=== PATIENT | female | born 1995 | race Caucasian/White ===

== ENCOUNTER 2018-03-02 17:12 | Emergency (ER) | payer OTHER ==
[2018-03-02 17:47] LABS: BASOPHILS % (AUTO) 1 % (0-3); EOSINOPHILS % (AUTO) 2 % (0-9); HEMATOCRIT 39 % (35-47); HEMOGLOBIN 13.3 gm/dl (12.0-15.5); LYMPHOCYTES % (AUTO) 34.2 % (10-50); MEAN CORPUSCULAR HGB CONC 34.1 gm/dl (32.0-36.0); MEAN CORPUSCULAR VOLUME 88 fL (81-99); MONOCYTES % (AUTO) 5.5 % (0-12); NEUTROPHILS % (AUTO) 57.5 % (37-80)
[2018-03-02 17:59] LABS: APPEARANCE,URINE Clear; BILIRUBIN,URINE NEGATIVE (NEGATIVE); COLOR,URINE Yellow; GLUCOSE, URINE (UA) NEGATIVE (NEGATIVE); KETONES,URINE NEGATIVE (NEGATIVE); LEUKOCYTE ESTERASE ,URINE NEGATIVE (NEGATIVE); NITRATE,URINE NEGATIVE (NEGATIVE); OCCULT BLOOD,URINE NEGATIVE (NEG-TRACE); PH,URINE 6.5; UROBILINOGEN,URINE 0.2 (0.2-1.0 EU)
[2018-03-02 18:02] VITALS: PULSE 67; RESP 16; TEMP 97.7
[2018-03-02 18:03] LABS: ALBUMIN 4.4 gm/dl (3.4-5.0); ALKALINE PHOSPHATASE 53 IU/L (46-116); ALT 27 IU/L (14-63); AST 20 IU/L (15-37); BILIRUBIN,TOTAL 0.4 mg/dl (0.2-1.0); BLOOD UREA NITROGEN 13 mg/dl (7-18); CALCIUM 8.9 mg/dl (8.5-10.1); CARBON DIOXIDE 26.3 mEq/L (21-32); CHLORIDE 104 mMol/L (98-107); CREATININE 0.78 mg/dl (0.60-1.00); GLUCOSE 90 mg/dl (74-106); POTASSIUM 3.6 mMol/L (3.5-5.1); SODIUM 139 mMol/L (136-145); TOTAL PROTEIN 7.2 gm/dl (6.4-8.2)
[2018-03-02 18:05] LABS: LACTIC ACID < 0.8 mMol/L (0.0-2.0)
[2018-03-02 18:30] LABS: RBC,URINE NEG (0-3AV/HPF); WBC,URINE NEG (0-5AV/HPF)
[2018-03-02 18:31] LABS: BACTERIA NEGATIVE (< 1+); CRYSTALS NEGATIVE (0-3 AVE/HPF)
[2018-03-02] MEDS ORDERED: MORPHINE SULFATE 10 MG/ML SOL IV ONE (18:45)
[2018-03-02] MEDS ORDERED: ONDANSETRON HCL 4 MG/2 ML SOL IV ONE (18:45)
[2018-03-02] MEDS ORDERED: ONDANSETRON HCL 4 MG/2 ML SOL ONE (18:47)
[2018-03-02] MEDS ORDERED: MORPHINE SULFATE 10 MG/ML SOL ONE (18:47)
[2018-03-02 21:19] VITALS: BP 116/89; O2SAT 99
== END 2018-03-02 21:15 | disposition home or self-care (01) | DRG 392 ==
LOC: ED 17:12
DX: R10.31 Right lower quadrant pain (principal); K59.00 Constipation, unspecified
CPT/HCPCS: 36415; 74177; 80053; 81001; 84703; 85025; 96374; 96375; 99283; 99285; J2270; J2405; Q9967